=== PATIENT | male | born 1940 | race Caucasian/White ===

== ENCOUNTER 2020-05-24 13:57 | Inpatient (IN) | payer MEDICARE ==
[2020-05-24] MEDS ORDERED: Iopamidol-370 76% 500 ML 1 ML ONE (14:39)
[2020-05-24 15:19] LABS: #Lymphocytes 1.2 thou/uL (1.20-3.40); #Monocytes 0.6 thou/uL (0.11-0.59); #Neutrophils 16.2 thou/uL (1.40-6.50); %Basophils 0.1 % (0.0-1.0); %Eosinophils 0.1 % (0.0-10.0); %Lymphocytes 6.8 % (21.0-51.0); %Monocytes 3.2 % (0.0-10.0); %Neutrophils 89.8 % (42.0-75.0); Hemoglobin 12.1 g/dL (14.0-18.0); Mean Corpuscular HGB CONC 33.4 g/dL (32.0-36.0); Mean Corpuscular Hemoglobin 31.3 pg (27.0-31.0); Mean Corpuscular Volume 93.8 fL (78.0-98.0); Mean Platelet Volume 6.1 fL (7.4-10.4); Platelet Count 238 thou/uL (130-400); RBC Distribution Width 12.2 % (11.5-14.5); Red Blood Cell (RBC) Count 3.86 mill/uL (4.70-6.10)
[2020-05-24 15:40] LABS: ALT (SGPT) 12 U/L (8-55); AST (SGOT) 20 U/L (5-34); Albumin 3.6 g/dL (3.4-4.8); Alkaline Phosphatase 55 U/L (40-110); Anion Gap 11 mmol/L (10-20); BUN (Urea Nitrogen) 33 mg/dL (8.4-25.7); Bilirubin, Total 0.5 mg/dL (0.2-1.2); Calc. Creatinine Clearance 0 mL/min (70-130); Calcium 8.2 mg/dL (7.8-10.44); Carbon Dioxide 24 mmol/L (23-31); Chloride 107 mmol/L (98-107); Estimated GFR-MDRD 54; Globulin 2.7 g/dL (2.4-3.5); Glucose 159 mg/dL (83-110); Potassium 4.6 mmol/L (3.5-5.1); Protein, Total 6.3 g/dL (5.8-8.1); Sodium 137 mmol/L (136-145)
[2020-05-24 16:16] LABS: PTT 23.5 sec (22.9-36.1); Prothrombin Time 12.9 sec (12.0-14.7)
--- NOTE | 2020-05-24 16:45 | CT ---
Exam: Head CT without contrast HISTORY: Syncope. Blood per rectum COMPARISON: none FINDINGS: Hemorrhage: No intraparenchymal hemorrhage or extra-axial hematoma. Brain parenchyma: Cortical henry-white matter differentiation is preserved. No mass effect or midline shift. Basilar cisterns are patent.Chronic small vessel ischemic changes white matter. 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 Ventricular system: Ventricles and sulci are patent and symmetric. Calvarium: Intact. Sinuses and mastoid air cells: Partial opacification of bilateral mastoid air cells. Findings are non specific. Correlate for mastoid infection. IMPRESSION: 1. No acute process 2. Age-appropriate atrophy and chronic small vessel change 3. Bilateral mastoid air cell opacification. Correlate for mastoid infection
--- NOTE | 2020-05-24 16:45 | CT ---
CT CERVICAL SPINE: Date: 05/24/2020 INDICATION: Syncope. FINDINGS: The cervical vertebra maintain normal height and alignment. There are mild to moderate degenerative c hanges. Mild osteopenia. No evidence of cervical spine fracture. IMPRESSION: No evidence of cervical spine fracture. POS: [facility]
--- NOTE | 2020-05-24 16:57 | CT ---
CT abdomen and pelvis with IV contrast HISTORY: Abdominal pain. Rectal bleeding. FINDINGS: The lung bases are clear. Small to moderate-sized hiatal hernia. Multiple large, lobular and complex cysts involve the cortex of each kidney. The largest is at the nettles perior pole of each kidney, measuring up to 10.1 cm on the right and the left. Thin peripheral calcifications are associated with the complex cysts at the superior pole of the right kidney in the inferior pole of the left kidney. No evidence of urinary tract obstruction. Appendix is unremarkable. 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 Decompression and subtle circumferential wall thickening involves the upper right colon and the right two thirds of the transverse colon. No evidence of obstruction. No focal mass. Fat protrudes into small bilateral inguinal hernias that do not contain bowel. IMPRESSION : Approximately 2 foot segment of mildly inflamed right/transverse colon. Cause is not evident. Conside r infection? Large complex bilateral renal cysts. Because of the thin calcified rim, technically perihepatic follo w-up should be considered. No soft tissue component is evident Bilateral fat-containing inguinal hernias. Other incidental-type findings as detailed above.
[2020-05-24] MEDS ORDERED: metroNIDAZOLE 250 MG TAB ONE (17:28)
[2020-05-24] MEDS ORDERED: metroNIDAZOLE 500 MG/100 ML BAG ONE (17:41)
--- NOTE | 2020-05-24 18:29 | RAD ---
PORTABLE CHEST: 05/24/20 HISTORY: Dizziness. No comparison. Heart mildly enlarged. Lungs appear clear. Vascular markings normal. IMPRESSION: No acute process. POS: [facility]
[2020-05-24] MEDS ORDERED: Acetaminophen 325 MG TAB PO PRN (19:00)
--- NOTE | 2020-05-24 19:11 | PDOC.HHP ---
Hospitalist HPI - History of Present Illness Syncope, bloody diarrhea History of Present Illness: This patient is a 79-year-old male who is generally in pretty good health. He has no significant past medical history. He takes no routine medicines. He does try to take aspirin. He says that recently had a rectal exam by his PCP. He believes that was primarily for screening purposes and that he was not having any particular problems at the time although he does report some prostate symptoms. Since that time he has had some blood in his stool a couple of times. Today he had significant blood with a bowel movement he subsequently went to his kitchen and started feeling lightheaded. He subsequently passed out. Apparently he was found by friends on the floor with bloody stool incontinence. He was subsequently brought to the hospital. He says he recalls being lightheaded. He did not have stomach cramping per se but could tell that it was rumbling a bit. He has had no fevers or chills. Currently he denies any particular problems. ED Course: CT abdomen did reveal some evidence of colitis. He has received Cipro and Flagyl. Hospitalist ROS - Review of Systems Constitutional: denies: fever, chills Gastrointestinal: reports: hematochezia. denies: nausea, vomiting, abdominal pain, diarrhea, constipation Genitourinary: reports: frequency, retention All other systems reviewed; all pertinent +/- noted in HPI/Subj - Medication Medications: Aspirin Hospitalist History - Past Medical History Source: patient Cardiac: reports: no pertinent history - Past Surgical History Past Surgical History: reports: no pertinent history - Family History Family History: reports: no pertinent history - Social History Smoking Status: Never smoker Alcohol: reports: None Drugs: reports: none Living Situation: Alone - Exam General Appearance: NAD, awake alert Eye: PERRL, anicteric sclera Heart: RRR, no murmur, no gallops, no rubs, normal peripheral pulses Respiratory: CTAB, no wheezes, no rales, no ronchi, normal chest expansion, no tachypnea, normal percussion Gastrointestinal: soft, non-tender, non-distended, normal bowel sounds, no palpable masses, no hepatomegaly, no splenomegaly, no bruit Extremities: no cyanosis, no clubbing, no edema Skin: normal turgor, no lesions, no rashes Neurological: cranial nerve grossly intact, normal sensation to touch, no weakness, no focal deficits, no new deficit Musculoskeletal: normal tone, normal strength, no muscle wasting Psychiatric: normal affect, normal behavior, A&O x 3 Hospitalist Results - Labs Result Diagrams: 05/24/20 14:58 05/24/20 14:58 Lab results: WBC 18.0 thou/uL (4.8-10.8) H 05/24/20 14:58 Hgb 12.1 g/dL (14.0-18.0) L 05/24/20 14:58 Hct 36.2 % (42.0-52.0) L 05/24/20 14:58 MCV 93.8 fL (78.0-98.0) 05/24/20 14:58 Plt Count 238 thou/uL (130-400) 05/24/20 14:58 Neutrophils % 89.8 % (42.0-75.0) H 05/24/20 14:58 Sodium 137 mmol/L (136-145) 05/24/20 14:58 Potassium 4.6 mmol/L (3.5-5.1) 05/24/20 14:58 Chloride 107 mmol/L (98-107) 05/24/20 14:58 Carbon Dioxide 24 mmol/L (23-31) 05/24/20 14:58 BUN 33 mg/dL (8.4-25.7) H 05/24/20 14:58 Creatinine 1.28 mg/dL (0.7-1.3) 05/24/20 14:58 Glucose 159 mg/dL (83-110) H 05/24/20 14:58 Lactic Acid 1.6 mmol/L (0.5-2.2) 05/24/20 18:06 Calcium 8.2 mg/dL (7.8-10.44) 05/24/20 14:58 Total Bilirubin 0.5 mg/dL (0.2-1.2) 05/24/20 14:58 AST 20 U/L (5-34) 05/24/20 14:58 ALT 12 U/L (8-55) 05/24/20 14:58 Alkaline Phosphatase 55 U/L (40-110) 05/24/20 14:58 Troponin I Less than 0.010 ng/mL (< 0.028) 05/24/20 14:58 Serum Total Protein 6.3 g/dL (5.8-8.1) 05/24/20 14:58 Albumin 3.6 g/dL (3.4-4.8) 05/24/20 14:58 - Radiology Interpretation CT scan - abdomen Status: report reviewed by me (2 foot segment of inflammatory changes of the right colon.) Hospitalist H&P A/P - Problem (1) Colitis Code(s): K52.9 - NONINFECTIVE GASTROENTERITIS AND COLITIS, UNSPECIFIED Status: Acute (2) Syncope Code(s): R55 - SYNCOPE AND COLLAPSE Status: Acute - Plan Plan: Colitis: Suspicious for infectious colitis. Cover with Cipro and Flagyl. Syncope: Likely vasovagal secondary to some cramping of the colon. Keep him on telemetry. Serial troponins. He does not have significant history.
[2020-05-24 20:16] LABS: Troponin I Less than 0.010 ng/mL (< 0.028)
[2020-05-24 21:37] LABS: Bacteria/HPF None Seen HPF (None Seen); Bilirubin Negative (Negative); Blood, Urine 2+ (Negative); Clarity Clear (Clear); Glucose, Urine (Dipstick) Normal (Negative); Ketone, Urine 10 mg/dL (Negative); Leukocyte Negative Leu/uL (Negative); Nitrite Negative (Negative); Protein, Urine (Dipstick) Negative (Neg-Trace); RBC/HPF 0-3 HPF (0-3); Squamous Epithelial 0-3 HPF (0-3); Urobilinogen Normal mg/dL (Less than 2); WBC/HPF 0-3 HPF (0-3)
[2020-05-24 21:39] LABS: Specific Gravity, Urine 1.061 (1.002-1.036)
[2020-05-24 22:35] VITALS: BMI 26.2
[2020-05-24] MEDS: Famotidine 20 MG TAB PO SCH (22:43)
[2020-05-24 23:46] LABS: Troponin I 0.013 ng/mL (< 0.028)
[2020-05-25] MEDS: metroNIDAZOLE 500 MG in Premix Bag 1 BAG IVPB SCH ×3 (03:09→18:23)
[2020-05-25 04:26] LABS: #Lymphocytes 2.7 thou/uL (1.20-3.40); #Monocytes 0.9 thou/uL (0.11-0.59); %Basophils 0.2 % (0.0-1.0); %Eosinophils 0.3 % (0.0-10.0); %Lymphocytes 23.2 % (21.0-51.0); %Monocytes 7.5 % (0.0-10.0); %Neutrophils 68.9 % (42.0-75.0); Hemoglobin 10.3 g/dL (14.0-18.0); Mean Corpuscular HGB CONC 33.2 g/dL (32.0-36.0); Mean Corpuscular Volume 93.4 fL (78.0-98.0); Mean Platelet Volume 6.1 fL (7.4-10.4); Platelet Count 214 thou/uL (130-400); RBC Distribution Width 12.1 % (11.5-14.5); Red Blood Cell (RBC) Count 3.32 mill/uL (4.70-6.10); White Blood Cell (WBC) Count 11.6 thou/uL (4.8-10.8)
[2020-05-25 04:49] LABS: Anion Gap 13 mmol/L (10-20); BUN (Urea Nitrogen) 31 mg/dL (8.4-25.7); Calc. Creatinine Clearance 52 mL/min (70-130); Calcium 8.1 mg/dL (7.8-10.44); Carbon Dioxide 23 mmol/L (23-31); Chloride 106 mmol/L (98-107); Estimated GFR-MDRD 55; Glucose 87 mg/dL (83-110); Potassium 4.1 mmol/L (3.5-5.1); Sodium 138 mmol/L (136-145)
[2020-05-25] MEDS ORDERED: FLU VACC QS2020-21(65YR UP)/PF 240 MCG/0.7 ML SYRINGE IM ONE (09:00)
[2020-05-25] MEDS: Famotidine 20 MG TAB PO SCH ×2 (09:20→21:21)
[2020-05-25 09:34] LABS: SARS-CoV-2 MS2 Positive; SARS-CoV-2 N Gene Negative; SARS-CoV-2 S Gene Negative; SARS-CoV-2 by NAA Not Detected (NotDetected); SARS-CoV-2 orf1ab Negative
--- NOTE | 2020-05-25 10:59 | PDOC.HOSPP ---
- Subjective Encounter Date: 05/25/20 Subjective: Doing well. Hungry. Has no abdominal pain. Has not had a bowel movement since he has been here. - Objective Vital Signs & Weight: Vital Signs (12 hours) Temp Pulse Resp BP Pulse Ox 05/25/20 07:15 99.4 F 67 15 119/68 97 05/25/20 04:00 97.9 F 61 20 110/55 L 96 Weight Admit Weight 167 lb 4.8 oz Weight 167 lb 4.8 oz I&O: 05/24/20 05/25/20 05/26/20 06:59 06:59 06:59 Intake Total 250 Balance 250 Result Diagrams: 05/25/20 04:06 05/25/20 04:06 Hospitalist ROS - Medication Medications: Active Medications Generic Name Dose Route Start Last Admin Trade Name Freq PRN Reason Stop Dose Admin Famotidine 20 mg 05/24/20 21:00 05/25/20 09:20 Famotidine 20 Mg Tab PO 20 mg BID KASSANDRA Administration Ciprofloxacin/Dextrose 400 mg/ 200 mls @ 200 mls/hr 05/25/20 06:00 05/25/20 05:51 Device IVPB 200 mls 0600,1800 KASSANDRA Administration Metronidazole 500 mg/ Device 100 mls @ 100 mls/hr 05/25/20 02:00 05/25/20 09:20 IVPB 100 mls 0200,1000,1800 KASSANDRA Administration - Exam General Appearance: NAD, awake alert Heart: RRR, no murmur, no gallops, no rubs, normal peripheral pulses Respiratory: CTAB, no wheezes, no rales, no ronchi, normal chest expansion, no tachypnea, normal percussion Gastrointestinal: soft, non-tender, non-distended, normal bowel sounds, no palpable masses, no hepatomegaly, no splenomegaly, no bruit Extremities: no cyanosis, no clubbing, no edema Skin: normal turgor, no lesions, no rashes Musculoskeletal: normal tone, normal strength, no muscle wasting Psychiatric: normal affect, normal behavior, A&O x 3 Hosp A/P (1) Colitis Code(s): K52.9 - NONINFECTIVE GASTROENTERITIS AND COLITIS, UNSPECIFIED Status: Acute (2) Syncope Code(s): R55 - SYNCOPE AND COLLAPSE Status: Acute - Plan Colitis: Patient has evidence of some infectious colitis on his CT scan. He had some bloody diarrhea. Sounds like he only had a couple of episodes. Currently he has no abdominal pain. He is not having frequent bowel movements. He has no fever. His white count is coming down. At this point the plan will be to continue IV antibiotics with Cipro and Flagyl. If his blood cultures remain negative and his white count improves further and he remains asymptomatic he can likely discharge on 05/26/2020 with p.o. Cipro and Flagyl. Anemia: Very mild. Part of it is due to hydration. Does not appear that he is losing a significant amount of blood. Will recheck in the morning. Syncope: Patient appears to have had a vagal episode. Likely able to move him off of the telemetry floor. No further work-up seems to be indicated at this time.
[2020-05-26] MEDS: metroNIDAZOLE 500 MG in Premix Bag 1 BAG IVPB SCH ×2 (02:33→10:26)
[2020-05-26] MEDS: Famotidine 20 MG TAB PO SCH (10:26)
--- NOTE | 2020-05-26 11:52 | PDOC.DS.DS ---
Provider - Provider Date of Admission: 05/24/20 18:20 Date of Discharge: 05/26/20 Admitting Provider: Michael Cui MD Consultations: None Primary Care Physician: NO PCP PROVIDER Course - Hospital Course Hospital Course: Patient is a 79-year-old male with no previous history presented to the hospital on 05/24 with syncopal episode while having a bowel movement. He was found to have some blood in his stool. CT abdomen was consistent with colitis. Please refer to the history and physical dated 05/24 for further details. The patient was admitted to the telemetry unit with a diagnosis of colitis with syncope. He was started on IV ciprofloxacin and Flagyl with good improvement in his symptoms. He was initially kept n.p.o. and is currently tolerating regular diet. He denies any abdominal pain, nausea or diarrhea at the time of disch arge. He was advised to follow-up with gastroenterology for colonoscopy. His syncope was probably vasovagal in the setting of GI bleeding. Event monitor will be arranged. I discussed with cardiology service. He was advised to return to emergency room if he develops any new symptoms. Patient understands the above plan of care. Final diagnosis: Generalized weakness Sepsis due to infectious colitisPOAcolonoscopy as outpatient Acute blood loss anemia Dehydration on admission CKD stage III Syncope probably vasovagalevent monitor is arranged Resuscitation Status: 05/24/20 19:00 Resuscitation Status Routine Resuscitation Status: FULL: Full Resuscitation - Labs Lab Results: 05/25/20 04:06 05/25/20 04:06 Abnormal Lab Results - Last 48 hrs 05/24/20 14:58: BUN 33 H 05/24/20 14:58: WBC 18.0 H, RBC 3.86 L, Hgb 12.1 L, Hct 36.2 L, MCH 31.3 H, MPV 6.1 L, Neutrophils % 89.8 H, Lymphocytes % 6.8 L, Neutrophils # 16.2 H, Monocytes # 0.6 H 05/24/20 21:12: Ur Specific [place] 1.061 H, Urine Ketones 10 A, Urine Blood 2+ A 05/25/20 04:06: BUN 31 H 05/25/20 04:06: WBC 11.6 H, RBC 3.32 L, Hgb 10.3 L, Hct 31.0 L, MPV 6.1 L, Neutrophils # 8.0 H, Monocytes # 0.9 H Microbiology - Entire Visit 05/24/20 21:12 Urine voided Urine Culture - Preliminary NO GROWTH AT 12 HOURS 05/24/20 18:06 Venous blood - Right Arm Blood Culture - Preliminary Specimen has been received and culture in progress. No Growth to date. 05/24/20 18:15 Venous blood - Left Arm Blood Culture - Preliminary Specimen has been received and culture in progress. No Growth to date. - Diagnostic Interpretation CT scan - Ab/Pelvis Status: image reviewed by me Additional comments: Approximately 2 foot segment of mildly inflamed right/transverse colon. Cause is not evident. Consider infection? Large complex bilateral renal cysts. Because of the thin calcified rim, technically perihepatic follow-up should be considered. No soft tissue component is evident Bilateral fat-containing inguinal hernias. - Physical Exam Vitals: Vital Signs (12 hours) Temp Pulse Resp BP BP Pulse Ox 05/26/20 07:52 99.1 F 65 16 120/70 97 05/26/20 04:00 98.6 F 77 18 113/61 98 Weight Admit Weight 167 lb 4.8 oz Weight 173 lb 14.4 oz Physical Exam: The patient was seen and examined on the day of discharge. Lungs were clear to auscultation bilaterally. Abdomen was soft nontender with normal bowel sounds. Heart S1-S2 present. Plan - Discharge Medications Prescriptions: Ciprofloxacin HCl 500 mg PO BID #8 tablet metroNIDAZOLE [Flagyl] 500 mg PO TID #15 tab Home Medications: Medication Instructions Recorded Confirmed Type Ciprofloxacin HCl 500 mg PO BID #8 tablet 05/26/20 Rx metroNIDAZOLE [Flagyl] 500 mg PO TID #15 tab 05/26/20 Rx Allergies: No Known Allergies Allergy (Unverified 05/24/20 17:33) - Discharge Instructions Discharge Instructions:: CBC/BMP after 1 week - PCP to arrange/follow - Follow up Plan Referrals: [facility] [ Not on Staff] - 7 Days (Please call office to schedule your follow up appointment with your PCP through [facility].) Landry Muhammad MD [Active] - 7 Days (Please call office to schedule yourself a follow up appointment.) Sahil Weiss MD [Active] - 3 Days (Please call office to schedule a follow up appointment.) Disposition: HOME Quality - Care Measures CORE MEASURES:: N/A
--- NOTE | 2020-05-26 13:11 | PDOC.EVN ---
Event Note - Event Note Event Note: Spoke c/ patient's friend Viky, , re: outpatient MCT placement. Will call them Thursday to arrange time for placement. She voices understanding.
[2020-05-26 14:03] VITALS: TEMP 98.4
[2020-05-26 14:42] VITALS: BP 138/63
--- NOTE | 2020-05-26 17:29 | EKG ---
Test Reason : Blood Pressure : / mmHG Vent. Rate : 066 BPM Atrial Rate : 066 BPM P-R Int : 174 ms QRS Dur : 076 ms QT Int : 448 ms P-R-T Axes : 000 -05 013 degrees QTc Int : 469 ms Sinus rhythm with Premature supraventricular complexes Otherwise normal ECG Confirmed by MILA COON M.D. ([id number]), advertising editor MICKI KHANNA ([id number]) on 05/26/2020 5:29:41 PM Referred By: Confirmed By:MILA COON M.D.
== END 2020-05-26 14:35 | disposition home or self-care (01) | DRG 872 ==
LOC: ERS 13:57 → ERHOLD 18:20 → 2NO 22:24
PROVIDERS: ADMIT Internal Medicine; ATTEND Internal Medicine
DX: A41.9 Sepsis, unspecified organism (principal); A09 Infectious gastroenteritis and colitis, unspecified; D62 Acute posthemorrhagic anemia; E86.0 Dehydration; N18.30 Chronic kidney disease, stage 3 unspecified; Z20.828 Contact with and (suspected) exposure to other viral communicable diseases
CPT/HCPCS: 36415; 70450; 71045; 72125; 74177; 80048; 80053; 81003; 81015; 83605; 84484; 85025; 85610; 85730; 86850; 86900; 86901; 87086; 87635; 90471; 90662; 93005; 96365; 96367; G0008; J0744; Q9967; U0003